=== PATIENT | female | born 1980 | race Caucasian/White ===

== ENCOUNTER 2017-08-23 00:22 | Emergency (ER) | payer OTHER ==
[2017-08-23] MEDS ORDERED: ACETAMINOPHEN 500 MG TABLET (FP) PO ONE (00:51)
[2017-08-23] MEDS ORDERED: ACETAMINOPHEN 325 MG TABLET (FP) ONE (00:54)
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
[2017-08-23 00:59] VITALS: BP 109/64; PULSE 82; TEMP 98.6; BMI 18.8
[2017-08-23] MEDS ORDERED: morphine CARPU-JECT 2 MG/1 ML DISP.SYRIN IM ONE (01:40)
[2017-08-23] MEDS ORDERED: morphine SULFATE 4 MG/ML VIAL ONE (02:05)
== END 2017-08-23 02:55 | disposition home or self-care (01) ==
LOC: JER 00:22
PROC: 3E023NZ Introduction of Analgesics, Hypnotics, Sedatives into Muscle, Percutaneous Approach (ICD-10-PCS; principal; 2017-08-23)
DX: S52.251A Displaced comminuted fracture of shaft of ulna, right arm, initial encounter for closed fracture (principal); S05.11XA Contusion of eyeball and orbital tissues, right eye, initial encounter; Y04.2XXA Assault by strike against or bumped into by another person, initial encounter; Y93.89 Activity, other specified; Y92.038 Other place in apartment as the place of occurrence of the external cause; Y07.03 Male partner, perpetrator of maltreatment and neglect; F17.210 Nicotine dependence, cigarettes, uncomplicated; Z90.710 Acquired absence of both cervix and uterus
CPT/HCPCS: 70450-TC; 73090-TC-RT-FY; 73110-TC-RT-FY; 73130-TC-RT-FY; 96372; 99283-25

== ENCOUNTER 2017-12-11 22:03 | Emergency (ER) | payer OTHER ==
[2017-12-11 22:11] VITALS: BP 125/76; PULSE 91; TEMP 98.2; BMI 21.0
[2017-12-11] MEDS ORDERED: TETANUS AND DIPHTHERIA TOXOID 0.5 ML DISP.SYRIN IM ONE (22:24)
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
[2017-12-11] MEDS ORDERED: DIPHTH,PERTUSS(ACELL),TET 0.5 ML DISP.SYRIN IM ONE (22:44)
[2017-12-11] MEDS ORDERED: IBUPROFEN 400 MG TABLET (FP) PO ONE ×2 (22:48→22:53)
== END 2017-12-11 23:02 | disposition home or self-care (01) ==
LOC: JERFT 22:03
PROC: 3E0234Z Introduction of Serum, Toxoid and Vaccine into Muscle, Percutaneous Approach (ICD-10-PCS; principal; 2017-12-11)
DX: Z04.71 Encounter for examination and observation following alleged adult physical abuse (principal); S40.812A Abrasion of left upper arm, initial encounter; S40.811A Abrasion of right upper arm, initial encounter; S93.492A Sprain of other ligament of left ankle, initial encounter; Y35.812A Legal intervention involving manhandling, bystander injured, initial encounter; Y93.89 Activity, other specified; Y92.9 Unspecified place or not applicable
CPT/HCPCS: 73610-TC-LT-FY; 73630-TC-LT; 90715; 99281-25